=== PATIENT | male | born 1960 | race Caucasian/White ===

== ENCOUNTER 2022-02-10 09:06 | Emergency (ER) | payer BC | END 2022-02-10 12:16 | disposition home or self-care (01) | LOC: ERS 09:06 | DX: M54.9 Dorsalgia, unspecified (principal); I10 Essential (primary) hypertension; I25.10 Atherosclerotic heart disease of native coronary artery without angina pectoris; G40.909 Epilepsy, unspecified, not intractable, without status epilepticus; E10.319 Type 1 diabetes mellitus with unspecified diabetic retinopathy without macular edema; Z79.4 Long term (current) use of insulin; Z79.899 Other long term (current) drug therapy; F17.210 Nicotine dependence, cigarettes, uncomplicated | CPT/HCPCS: 72128; 72131; 96372 ==

== ENCOUNTER 2023-09-27 12:39 | Outpatient (CLI) | payer BC ==
[~2023-09-27 12:39] MED LIST: Magnevist 469MG/ML 20 ML VIAL ONE
== END 2023-09-27 12:40 | disposition home or self-care (01) ==
LOC: BICMRI 12:39
PROVIDERS: ATTEND Family Medicine
DX: H53.2 Diplopia (principal)
CPT/HCPCS: 70553; 82565; A9579